=== PATIENT | female | born 1995 | race Caucasian/White ===

== ENCOUNTER 2017-10-07 10:24 | Emergency (ER) | payer OTHER ==
[~2017-10-07 10:24] MED LIST: ALB6.7R INH; ALBU8.5H IH; AZIT500T47 PO; ETHI1TAB26 PO; NORG1TAB6 PO; OSE75 PO; PSE30 PO
--- NOTE | 2017-10-07 10:27 | ER Report ---
History and Physical Time Seen By MD: 10:27 HPI/ROS CHIEF COMPLAINT: Difficulty breathing HISTORY OF PRESENT ILLNESS: Patient is a 22-year-old female with recent clinical diagnosis of influenza and appear treated with Tamiflu. She was seen on 10/03/2017 she is currently having worsening difficulty breathing. For this reason she presents to the emergency department for evaluation. Patient states she is taking her outpatient medications as prescribed but still feeling short of breath. She does have a history of asthma for which he uses an inhaler but does not have a nebulizer treatment. Patient also has a history of pleurisy in the past and usually gets bronchitis at least once a year. Patient is a nonsmoker. REVIEW OF SYSTEMS: Respiratory: Productive cough yellow-green sputum, dyspnea Cardiovascular: Chest pain with inspiration no palpitations Gastrointestinal: No vomiting, no abdominal pain. Musculoskeletal: No back pain. Allergies: Coded Allergies: No Known Drug Allergies (Verified , 10/07/17) Home Meds Active Scripts Albuterol Sulfate 0.083% (ALBUTEROL SULFATE 0.083%) 2.5 Mg/3 Ml Vial.neb, 2.5 MG INH Q6H for cough, #1 BOX 0 Refills Prov:VANESSA PAZ MD 10/07/17 Azithromycin (ZITHROMAX) 250 Mg Tablet, 1 TAB PO QDAY for 4 Days, #4 TAB 0 Refills first dose on 10/08/17 Prov:VANESSA PAZ MD 10/07/17 Prednisone (PREDNISONE) 20 Mg Tablet, 40 MG PO QDAY, #12 TAB 0 Refills first dose on 10/08/17 Prov:VANESSA PAZ MD 10/07/17 Albuterol Sulfate 90 Mcg/Act (PROAIR HFA 90 MCG/ACT) 8.5 Gm Hfa.aer.ad, 1-2 PUFF IH 3-4XD Y for SHORTNESS OF BREATH, #1 INHALER 2 Refills Prov:HEIKE WEST MD 10/05/17 Oseltamivir Phosphate (TAMIFLU) 75 Mg Cap, 75 MG PO BID, #10 CAP Prov:HEIKE WEST MD 10/03/17 Discontinued Reported Medications Albuterol Sulfate (PROVENTIL HFA) 6.7 Gm Inh, 1-2 PUFF INH 3-4XD Y for SHORTNESS OF BREATH, INH 10/03/17 Discontinued Scripts Albuterol Sulfate (PROVENTIL HFA) 6.7 Gm Inh, 1-2 PUFF INH 3-4XD Y for SHORTNESS OF BREATH, #1 INH 2 Refills Prov:HEIKE WEST MD 10/03/17 Past Medical/Surgical History Past medical history for asthma Hx Smoking: No Smoking Status: Never Smoker Hx Substance Use Disorder: No Hx Alcohol Use: No Constitutional Vital Sign - Last 24 Hours 10/07/17 10/07/17 10/07/17 10/07/17 10:28 10:50 10:50 10:59 Temp 98.7 Pulse 103 92 107 Resp 22 16 16 B/P (MAP) 142/94 Pulse Ox 93 96 O2 Delivery Room Air Room Air 10/07/17 10/07/17 11:45 11:53 Pulse 96 107 Resp 16 16 Physical Exam General Appearance: The patient is alert, has no immediate need for airway protection and no current signs of toxicity. Eyes: Pupils equal and round no injection. Respiratory: Chest wang nontender. Patient does have mild inspiratory wheeze with cough. Slight increased respiratory rate. Cardiac: regular rate and rhythm Gastrointestinal: Abdomen is soft and non tender, no masses, bowel sounds normal. Musculoskeletal: Neck: Neck is supple and non tender. Extremities have full range of motion and are non tender. Skin: No rashes or lesions. Medical Decision Making Data Points Laboratory Hematology Test 10/07/17 10:40 Influenza Virus Type A (PCR) Negative (NEGATIVE) Influenza Virus Type B (PCR) Negative (NEGATIVE) Respiratory Syncytial Virus (PCR) Negative (NEGATIVE) Group A Streptococcus Screen Negative (NEGATIVE) Chemistry Test 10/07/17 10:40 Influenza Virus Type A (PCR) Negative (NEGATIVE) Influenza Virus Type B (PCR) Negative (NEGATIVE) Respiratory Syncytial Virus (PCR) Negative (NEGATIVE) Group A Streptococcus Screen Negative (NEGATIVE) EKG/Imaging Imaging FACILITY: [facility] PATIENT NAME: Ana Paula Rain : 1995 MR: [id number] V: [id number] EXAM DATE: ORDERING PHYSICIAN: VANESSA PAZ TECHNOLOGIST: Location: [facility] - [place], [place] Patient: Ana Paula Rain : 1995 Visit/Account:[id number] Date of Sevice: 10/07/2017 CHEST PA AND LAT COMPARISONS: None. ADDITIONAL PERTINENT HISTORY: Cough FINDINGS: Cardiomediastinal silhouette: Negative. Pulmonary vasculature: Negative. Lung nick: Findings concerning for mild strandy opacity at the left lung base suggesting a small infiltrate. Pleural spaces: Negative. Osseous structures: Negative. Surrounding soft tissues: Negative. IMPRESSION: 1. Findings concerning for developing infiltrate at the left lung base. Otherwise negative Report Dictated By: Addy Payne MD at 10/07/2017 11:29 AM Report E-Signed By: Addy Payne MD at 10/07/2017 11:31 AM WSN:[id number] ED Course/Re-evaluation ED Course 10/07/2017 10:43:56 am plan at this time will be to repeat influenza RSV and strep. We will also obtain a chest x-ray at this time. We'll order a DuoNeb nebulizer treatment for the patient and give oral steroids. Re-evaluation 10/07/2017 12:03:41 pm patient improved after 2 nebulizer treatments. Patient with left lower lobe infiltrate. We'll treat for community-acquired pneumonia. We'll discharge patient home with a home nebulizer for the next 7 days. Decision to Disposition Date: Oct 07, 2017 Decision to Disposition Time: 12:03 Depart Departure Latest Vital Signs Vital Signs Date Time Temp Pulse Resp B/P (MAP) Pulse Ox O2 Delivery O2 Flow Rate FiO2 10/07/17 11:53 107 16 10/07/17 10:50 96 Room Air 10/07/17 10:28 98.7 142/94 Impression: Primary Impression: Community acquired pneumonia Condition: Improved Disposition: HOME OR SELF-CARE New Scripts Albuterol Sulfate 0.083% (ALBUTEROL SULFATE 0.083%) 2.5 Mg/3 Ml Vial.neb 2.5 MG INH Q6H for cough, #1 BOX 0 Refills Prov: VANESSA PAZ MD 10/07/17 Azithromycin (ZITHROMAX) 250 Mg Tablet 1 TAB PO QDAY for 4 Days, #4 TAB 0 Refills first dose on 10/08/17 Prov: VANESSA PAZ MD 10/07/17 Prednisone (PREDNISONE) 20 Mg Tablet 40 MG PO QDAY, #12 TAB 0 Refills first dose on 10/08/17 Prov: VANESSA PAZ MD 10/07/17 Departure Forms: ER Transition Record, Home Oxygen, Nebulizer RX, Durable Medical Equipment-Oxygen: Nebulizer Reason for Use/Diagnosis: pneumonia Start Date of the Order: Oct 07, 2017 Route of Administration (if applicable): Other Duration Home O2 Required: 7 Duration Units: Days Room Air Oxygen Saturation: 92 ER Prescribing Physician's Name: Vanessa Paz NPI Numbers for Local ER MDs: Brandi [id number] Medications Reconciliation, Off Work/School Form, School or Work Release? : Work Number of days to be released: 3 Patient Portal Information Patient Instructions: Community Acquired Pneumonia (DC) Problem Qualifiers Primary Impression: Community acquired pneumonia Laterality: left Lung location: lower lobe of lung Qualified Codes: J18.1 - Lobar pneumonia, unspecified organism VANESSA PAZ MD Oct 07, 2017 10:27
[2017-10-07] MEDS ORDERED: predniSONE 20 MG TAB PO ONE (10:45)
[2017-10-07] MEDS ORDERED: ALBUTEROL/IPRATROPIUM 3 ML NEB NEB ONE ×2 (10:45→11:35)
--- NOTE | 2017-10-07 11:33 | RADIOLOGY IMAGING REPORT ---
FACILITY: [facility] PATIENT NAME: Ana Paula Rain : 1995 MR: [id number] V: [id number] EXAM DATE: ORDERING PHYSICIAN: VANSESA YUSUF TECHNOLOGIST: Location: [place] [facility] - [place] Patient: Ana Paula Rain : 1995 Visit/Account:[id number] Date of Sevice: 10/07/2017 CHEST PA AND LAT COMPARISONS: None. ADDITIONAL PERTINENT HISTORY: Cough FINDINGS: Cardiomediastinal silhouette: Negative. Pulmonary vasculature: Negative. Lung nick: Findings concerning for mild strandy opacity at the left lung base suggesting a small i nfiltrate. Pleural spaces: Negative. Osseous structures: Negative. Surrounding soft tissues: Negative. IMPRESSION: 1. Findings concerning for developing infiltrate at the left lung base. Otherwise negative Report Dictated By: Addy Payne MD at 10/07/2017 11:29 AM Report E-Signed By: Addy Payne MD at 10/07/2017 11:31 AM WSN:[id number]
[2017-10-07] MEDS ORDERED: AZITHROMYCIN 250 MG TAB PO ONE (11:40)
[2017-10-07 11:45] VITALS: BP 120/82
[2017-10-07] MEDS ORDERED: ALBU2.5V36 INH (11:51)
[2017-10-07] MEDS ORDERED: AZIT-1 PO (11:51)
[2017-10-07] MEDS ORDERED: PRED20TA6 PO (11:51)
== END 2017-10-07 11:59 | disposition home or self-care (01) ==
LOC: ER 10:27
DX: J18.1 Lobar pneumonia, unspecified organism (principal)
CPT/HCPCS: 71046; 87081; 87502; 87798; 87880; 94640; 99283; J7512; J7620; Q0144

== ENCOUNTER → 2017-10-16 | Outpatient (REF) ==
[~2017-10-16] MED LIST changes: +ALBU2.5V36 INH; +AZIT-1 PO; +FLUT16SP19 NS; +PRED20TA6 PO
[2017-10-16 06:45] LABS: LDL CHOLESTEROL 27 mg/dl
== END ==
DX: Z02.9 Encounter for administrative examinations, unspecified (principal)

== ENCOUNTER → 2018-01-08 | Outpatient (CLI) | payer OTHER ==
[~2018-01-08] MED LIST changes: +DOXY-229 PO; +LEVO1IUD2 IY
== END ==
LOC: LAB 09:54
PROVIDERS: ATTEND Student in an Organized Health Care Education/Training Program
DX: R10.2 Pelvic and perineal pain (principal)
CPT/HCPCS: 87491; 87591

== ENCOUNTER → 2018-04-17 | Outpatient (CLI) | payer OTHER ==
[~2018-04-17] MED LIST changes: +SULF-198 PO
== END ==
LOC: LAB 13:08
PROVIDERS: ATTEND Student in an Organized Health Care Education/Training Program
DX: R39.15 Urgency of urination (principal)
CPT/HCPCS: 81001; 87088

== ENCOUNTER → 2018-07-27 | Outpatient (REF) ==
[~2018-07-27] MED LIST changes: -LEVO1IUD2 IY; +LEVO1IUD3 IY
[2018-07-27 07:50] LABS: LDL CHOLESTEROL 51 mg/dl
== END ==
DX: Z02.9 Encounter for administrative examinations, unspecified (principal)

== ENCOUNTER → 2018-08-13 | Outpatient (CLI) | payer OTHER | LOC: LAB 10:24 | PROVIDERS: ATTEND Student in an Organized Health Care Education/Training Program | DX: R30.0 Dysuria (principal); R82.71 Bacteriuria; R82.79 Other abnormal findings on microbiological examination of urine | CPT/HCPCS: 81001; 87088 ==

== ENCOUNTER 2019-01-28 09:57 | Emergency (ER) | payer OTHER ==
[~2019-01-28 09:57] MED LIST changes: +CEPH500T7 PO; +CIPR-345 PO; +ETHI1TAB16 PO
[2019-01-28] MEDS ORDERED: NS(*) 0.9% 1000 ML BAG 1,000 ML IV ONE ×2 (10:18)
[2019-01-28] MEDS ORDERED: ONDANSETRON 4 MG/2 ML VIAL IVP ONE (10:20)
--- NOTE | 2019-01-28 10:21 | ER Report ---
History and Physical Time Seen By MD: 10:05 Hx. of Stated Complaint: PATIENT REPORTS A SYNCOPAL EPISODE ON MONDAY WHILST SHE WAS ATTENDING A [employer] HPI/ROS CHIEF COMPLAINT: Vomiting diarrhea HISTORY OF PRESENT ILLNESS: Otherwise healthy 24 of edema comes emergency Department today with a complaint of vomiting and diarrhea patient's that she had a witnessed equal episode to 3 days prior to presentation she was outside felt that she was dehydrated felt lightheaded and subsequently since that she's been having multiple episodes of emesis and diarrhea no abdominal pain noted not bili nonbloody emesis and/or diarrhea patient states that she's been able to keep up with her by mouth feels very lightheaded came in to work today and is feeling very weak and lightheaded. Patient has no chest pain shortness of breath no abdominal pain REVIEW OF SYSTEMS: Respiratory: No cough, no dyspnea. Cardiovascular: No chest pain, no palpitations. Gastrointestinal: Vomiting diarrhea no abdominal pain Musculoskeletal: No back pain. Remainder of the 14 system rev: Yes Allergies: Coded Allergies: No Known Drug Allergies (Verified , 10/07/17) Home Meds Active Scripts Ethinyl Estradiol/Drospirenone (GIANVI 3 MG-0.02 MG TABLET) 1 Each Tablet, 1 EACH PO DAILY, #1 PACK 12 Refills Prov:PADMA ALVARENGA DO 10/18/18 Albuterol Sulfate 90 Mcg/Act (PROAIR HFA 90 MCG/ACT) 8.5 Gm Hfa.aer.ad, 1-2 PUFF IH 3-4XD PRN for SHORTNESS OF BREATH, #1 INHALER 2 Refills Prov:HEIKE WEST MD 10/05/17 Reported Medications Levonorgestrel 20 Mcg/Day (MIRENA 20 MCG/DAY) 1 Each Iud, EACH IY 01/08/18 Discontinued Scripts Ciprofloxacin 250 Mg (CIPROFLOXACIN 250 MG) 250 Mg Tablet, 250 MG PO BID for 3 Days, #6 TAB 0 Refills Prov:PADMA ALVARENGA DO 10/18/18 Albuterol Sulfate 0.083% (ALBUTEROL SULFATE 0.083%) 2.5 Mg/3 Ml Vial.neb, 2.5 MG INH Q6H for cough, #1 BOX 0 Refills Prov:VANESSA YUSUF MD 10/07/17 Reviewed Nurses Notes: Yes Old Medical Records Reviewed: Yes Hx Smoking: No Smoking Status: Never Smoker Hx Substance Use Disorder: No Hx Alcohol Use: No Constitutional Vital Sign - Last 24 Hours 01/28/19 01/28/19 01/28/19 01/28/19 09:57 10:02 10:06 10:17 Temp 98.4 Pulse ??? 79 Resp 20 B/P (MAP) 128/92 (104) 128/92 124/83 (97) Pulse Ox 98 O2 Delivery Room Air 01/28/19 01/28/19 01/28/19 01/28/19 10:18 10:19 10:24 10:27 Pulse 70 72 77 91 B/P (MAP) 122/94 (103) 116/95 (102) 124/83 (97) 122/94 (103) 116/95 (102) Pulse Ox 95 01/28/19 10:57 Pulse 69 Pulse Ox 97 Physical Exam General Appearance: The patient is alert, has no immediate need for airway protection and no current signs of toxicity. [ ] Eyes: Pupils equal and round no injection. Respiratory: Chest is non tender, lungs are clear to auscultation. Cardiac: regular rate and rhythm [ ] Gastrointestinal: Abdomen is soft and non tender, no masses, bowel sounds normal. Musculoskeletal: Neck: Neck is supple and non tender. Extremities have full range of motion and are non tender. Skin: No rashes or lesions. [ ] DIFFERENTIAL DIAGNOSIS: After history and physical exam differential diagnosis was considered for enteritis gastroenteritis colitis and dehydration stomach flu Medical Decision Making Data Points Result Diagram: 01/28/19 1015 01/28/19 1015 Laboratory Hematology Test 01/28/19 10:15 White Blood Count 6.9 k/uL (4.5-11.0) Red Blood Count 4.85 M/uL (4.17-5.56) Hemoglobin 16.3 g/dL (12.0-16.0) H Hematocrit 46.1 % (34.0-47.0) Mean Corpuscular Volume 95.0 fL (80.0-96.0) Mean Corpuscular Hemoglobin 33.6 pg (26.0-33.0) H Mean Corpuscular Hemoglobin Concent 35.4 g/dL (32.0-36.0) Red Cell Distribution Width 12.1 % (11.5-14.5) Platelet Count 197 K/uL (150-450) Mean Platelet Volume 7.9 fL (7.2-11.1) Neutrophils (%) (Auto) 62.8 % (39.4-72.5) Lymphocytes (%) (Auto) 21.3 % (17.6-49.6) Monocytes (%) (Auto) 13.6 % (4.1-12.4) H Eosinophils (%) (Auto) 1.6 % (0.4-6.7) Basophils (%) (Auto) 0.7 % (0.3-1.4) Nucleated RBC Relative Count (auto) 0.1 /100WBC Neutrophils # (Auto) 4.4 K/uL (2.0-7.4) Lymphocytes # (Auto) 1.5 K/uL (1.3-3.6) Monocytes # (Auto) 0.9 K/uL (0.3-1.0) Eosinophils # (Auto) 0.1 K/uL (0.0-0.5) Basophils # (Auto) 0.0 K/uL (0.0-0.1) Nucleated RBC Absolute Count (auto) 0.01 K/uL Chemistry Test 01/28/19 10:15 Sodium Level 136 mmol/L (137-145) Potassium Level 3.7 mmol/L (3.5-5.0) Chloride Level 104 mmol/L (98-107) Carbon Dioxide Level 24 mmol/L (22-31) Blood Urea Nitrogen 7 mg/dl (7-18) Creatinine 0.90 mg/dl (0.52-1.04) Glomerular Filtration Rate Calc > 60.0 Random Glucose 95 mg/dl (75-110) Calcium Level 8.9 mg/dl (8.4-10.2) Total Bilirubin 0.3 mg/dl (0.2-1.3) Aspartate Amino Transf (AST/SGOT) 30 U/L (0-35) Alanine Aminotransferase (ALT/SGPT) 33 U/L (0-56) Alkaline Phosphatase 51 U/L (0-126) Total Protein 6.8 g/dl (6.3-8.2) Albumin 3.9 g/dl (3.5-5.0) Lipase 53 U/L (23-300) Urinalysis Test 01/28/19 11:06 Urine Color Colorless Urine Clarity Clear Urine pH 6.0 pH (4.8-9.5) Urine Specific [place] 1.002 Urine Protein Negative mg/dL (NEGATIVE) Urine Glucose (UA) Negative mg/dL (NEGATIVE) Urine Ketones Negative mg/dL (NEGATIVE) Urine Blood Small (NEGATIVE) Urine Nitrite Negative (NEGATIVE) Urine Bilirubin Negative (NEGATIVE) Urine Urobilinogen Negative mg/dL (0.2-1.9) Urine Leukocyte Esterase Negative (NEGATIVE) Urine RBC None /HPF (0-2/HPF) Urine WBC None /HPF (0-5/HPF) Urine Squamous Epithelial Cells Few /LPF (</=FEW) Urine Bacteria Negative /HPF (NONE-FEW) Urine Mucus None /HPF (NONE-FEW) Urine HCG, Qualitative Negative (NEGATIVE) ED Course/Re-evaluation ED Course ED course medical decision-making 24 showed female comes in with diarrhea and vomiting for the last couple days orthostatics were negative A to within normal limits no prerenal azotemia negative and gave her 2 L of fluid she felt significantly better observed her for approximately 2-1/2 hours patient be diagnosed with gastroenteritis and put on ODT Zofran for the next 24 hours up with primary care as needed Decision to Disposition Date: Jan 28, 2019 Decision to Disposition Time: 11:56 Depart Departure Latest Vital Signs Vital Signs Date Time Temp Pulse Resp B/P (MAP) Pulse Ox O2 Delivery O2 Flow Rate FiO2 01/28/19 10:57 69 97 01/28/19 10:24 124/83 (97) 122/94 (103) 116/95 (102) 01/28/19 10:06 98.4 20 Room Air Impression: Primary Impression: Gastroenteritis Condition: Improved Disposition: HOME OR SELF-CARE Referrals: PADMA ALVARENGA DO (PCP) 5 Days New Scripts Ondansetron 4 Mg Odt (ONDANSETRON 4 MG ODT) 4 Mg Tab.rapdis 4 MG PO ONCE for Nausea for 7 Days, #20 TAB Prov: BARRIE LANDA MD 01/28/19 Patient Instructions: Gastroenteritis (DC) BARRIE LANDA MD Jan 28, 2019 10:21
[2019-01-28 10:24] VITALS: BP 116/95
[2019-01-28 10:28] LABS: PLATELET COUNT, AUTOMATED 197 K/uL (150-450)
[2019-01-28] MEDS ORDERED: ONDA4TAB9 PO (12:00)
== END 2019-01-28 12:39 | disposition home or self-care (01) ==
LOC: ER 10:21
DX: K52.9 Noninfective gastroenteritis and colitis, unspecified (principal)
CPT/HCPCS: 81001; 81025; 83690; 85025; 96361; 96374; 99283; J2405; J7030; 82040; 82247; 82310; 82374; 82435; 82565; 82947; 84075; 84132; 84155; 84295; 84450; 84460; 84520